=== PATIENT | female | born 1965 | race Two or more races ===

== ENCOUNTER → 2017-02-24 13:39 | Outpatient (CLI) | payer OTHER ==
[~2017-02-24] VITALS: Ht 152.4 cm; Wt 61.7 kg
[~2017-02-24 13:39] MED LIST: ALLEGRA ALLERG180 MG PO; AMOX1TAB12 PO; FIORICET PO; FLONASE16 GM NASAL; FLONASE16 GM NS; MUCINEX600 MG PO; PAXIL CR25 MG; PAXIL20 MG; XANAX0.25 MG; ZITHROMAX500 MG PO
== END | disposition home or self-care (01) ==
LOC: PPHC 13:39
DX: R05 Cough (principal); R50.9 Fever, unspecified; N39.0 Urinary tract infection, site not specified; J06.9 Acute upper respiratory infection, unspecified

== ENCOUNTER → 2017-02-24 16:34 | Outpatient (CLI) | payer OTHER | END | disposition home or self-care (01) | LOC: LAB 16:34 | DX: R50.9 Fever, unspecified (principal); N39.0 Urinary tract infection, site not specified ==

== ENCOUNTER → 2017-03-03 08:54 | Outpatient (CLI) | payer OTHER ==
[~2017-03-03] VITALS: Ht 152.4 cm; Wt 61.7 kg
== END | disposition home or self-care (01) ==
LOC: PPHC 08:54
DX: R05 Cough (principal); R07.89 Other chest pain

== ENCOUNTER 2017-03-03 10:43 | Emergency (ER) | payer OTHER ==
[~2017-03-03] VITALS: Ht 165.1 cm; Wt 61.7 kg
== END 2017-03-03 13:47 | disposition home or self-care (01) ==
LOC: ER 10:43
DX: B34.9 Viral infection, unspecified (principal)

== ENCOUNTER 2017-06-10 14:43 | Outpatient (CLI) | payer OTHER | END 2017-06-10 14:50 | disposition home or self-care (01) | LOC: MAMO-SONO 14:43 | DX: Z12.31 Encounter for screening mammogram for malignant neoplasm of breast (principal) ==

== ENCOUNTER 2018-07-06 10:38 | Outpatient (CLI) | payer OTHER | END 2018-07-06 10:41 | disposition home or self-care (01) | LOC: RAD 10:38 | DX: M25.531 Pain in right wrist (principal) ==

== ENCOUNTER 2018-07-22 10:53 | Outpatient (CLI) | payer OTHER | END 2018-07-22 10:56 | disposition home or self-care (01) | LOC: MAMO-SONO 10:53 | DX: Z12.31 Encounter for screening mammogram for malignant neoplasm of breast (principal) ==

== ENCOUNTER 2019-09-21 10:57 | Outpatient (CLI) | payer OTHER | END 2019-09-21 11:12 | disposition home or self-care (01) | LOC: MAMO-SONO 10:57 | PROVIDERS: ATTEND Specialist | DX: Z12.31 Encounter for screening mammogram for malignant neoplasm of breast (principal); N63.10 Unspecified lump in the right breast, unspecified quadrant; N63.20 Unspecified lump in the left breast, unspecified quadrant ==

== ENCOUNTER 2020-11-29 10:15 | Outpatient (CLI) | payer OTHER | END 2020-11-29 11:37 | disposition home or self-care (01) | LOC: MAMO-SONO 10:15 | PROVIDERS: ATTEND Specialist | DX: N63.0 Unspecified lump in unspecified breast (principal); Z12.31 Encounter for screening mammogram for malignant neoplasm of breast; Z80.8 Family history of malignant neoplasm of other organs or systems ==

== ENCOUNTER → 2021-12-02 | Outpatient (CLI) | payer OTHER | END | disposition home or self-care (01) | LOC: MAMO-SONO 10:00 | PROVIDERS: ATTEND Specialist | DX: N63.0 Unspecified lump in unspecified breast (principal); Z12.31 Encounter for screening mammogram for malignant neoplasm of breast ==

== ENCOUNTER 2023-02-26 08:55 | Outpatient (CLI) | payer OTHER | END 2023-02-26 09:04 | disposition home or self-care (01) | LOC: MAMO-SONO 08:55 | PROVIDERS: ATTEND Specialist | DX: Z12.31 Encounter for screening mammogram for malignant neoplasm of breast (principal); N63.0 Unspecified lump in unspecified breast ==

== ENCOUNTER 2023-04-21 10:40 | Outpatient (CLI) | payer OTHER | END 2023-04-21 10:49 | disposition home or self-care (01) | LOC: SONOGRAMA 10:40 | PROVIDERS: ATTEND Specialist | DX: N95.0 Postmenopausal bleeding (principal) ==

== ENCOUNTER 2024-06-02 09:29 | Outpatient (CLI) | payer OTHER | END 2024-06-02 09:46 | disposition home or self-care (01) | LOC: MAMO-SONO 09:29 | PROVIDERS: ATTEND Obstetrics & Gynecology | DX: N60.11 Diffuse cystic mastopathy of right breast (principal); N60.12 Diffuse cystic mastopathy of left breast; Z12.31 Encounter for screening mammogram for malignant neoplasm of breast ==